=== PATIENT | male | born 1985 | race Caucasian/White ===

== ENCOUNTER 2019-06-20 10:42 | Emergency (ER) | payer BC ==
[~2019-06-20] VITALS: Ht 180.3 cm; Wt 90.3 kg
[~2019-06-20 10:42] MED LIST: DOCU-144 PO; NAPR-985 PO
[2019-06-20 10:55] VITALS: Ht 180.3 cm; Wt 90.3 kg
[2019-06-20 13:56] VITALS: BP 122/65; PULSE 69; RESP 20
== END 2019-06-20 13:58 | disposition home or self-care (01) ==
LOC: FTE 10:42
DX: K59.00 Constipation, unspecified (principal)
CPT/HCPCS: 36415; 74176; 80053; 81001; 83690; 85025; Z7502